=== PATIENT | male | born 1970 | race Caucasian/White ===

== ENCOUNTER 2017-03-01 20:46 | Observation (INO) | payer OTHER ==
[~2017-03-01] VITALS: Ht 190.5 cm; Wt 112.5 kg
[~2017-03-01 20:46] MED LIST: AC325T PO; HYDR-3812 PO; HYDR1TAB PO; MECL25TA56 PO; MELA5CAP PO; METOPROLOL PO; MULT1TAB12 PO
--- NOTE | 2017-03-01 21:47 | Diagnostic Imaging Report ---
PROCEDURE: CT head without contrast. TECHNIQUE: Multiple contiguous axial images were obtained through the brain without the use of intravenous contrast. INDICATION: Left-sided facial pain. Comparison is made with a prior CT from January 30, 2013 FINDINGS: There is an unchanged region of low density within the left cerebellum likely reflecting a prior infarct. There is no other loss of hassan-white differentiation. There is no hemorrhage. There is no mass effect or shift. There is no hydrocephalus. There is no abnormal extra-axial fluid collection. Basilar cisterns are patent. Mastoid air cells are clear. The visualized paranasal sinuses are clear. Orbital contents unremarkable. The visualized bones of the face demonstrate no evidence of fracture and there is no focal soft tissue abnormality. IMPRESSION: 1. No CT evidence of an acute intracranial abnormality. 2. Longstanding stable region of low-density within the superior left cerebellum suggesting a prior remote infarct. Dictated by: Dictated on workstation # [id number]
[2017-03-01 21:58] LABS: BASOPHILS % (AUTO) 0 % (0-10); EOSINOPHILS # (AUTO) 0.1 10^3/uL (0.0-0.3); EOSINOPHILS % (AUTO) 1 % (0-10); LYMPHOCYTES # (AUTO) 1.9 X 10^3 (1.0-4.0); LYMPHOCYTES % (AUTO) 27 % (12-44); MEAN CORPUSCULAR HEMOGLOBIN 31 PG (25-34); MEAN CORPUSCULAR HGB CONC 36 G/DL (32-36); MEAN CORPUSCULAR VOLUME 88 FL (80-99); MEAN PLATELET VOLUME 9.9 FL (7.4-10.4); MONOCYTES # (AUTO) 0.5 X 10^3 (0.0-1.0); MONOCYTES % (AUTO) 7 % (0-12); NEUTROPHILS # (AUTO) 4.6 X 10^3 (1.8-7.8); NEUTROPHILS % (AUTO) 65 % (42-75); PLATELET COUNT 140 10^3/uL (130-400); RED BLOOD COUNT 5.44 10^6/uL (4.35-5.85); RED CELL DISTRIBUTION WIDTH 13.5 % (10.0-14.5); WHITE BLOOD COUNT 7.1 10^3/uL (4.3-11.0)
[2017-03-01 22:07] LABS: PROTHROMBIN TIME PATIENT 12.9 SEC (12.2-14.7)
--- NOTE | 2017-03-01 22:12 | Diagnostic Imaging Report ---
EXAMINATION: PA chest INDICATION: Facial numbness and elevated blood pressure. Comparison is made to prior chest radiograph from December 18, 2008. FINDINGS: There is enlargement of the cardiac silhouette but no evidence to suggest failure. There is no focal infiltrate or effusion. There is no pneumothorax. No acute osseous abnormality is seen. IMPRESSION: 1. Enlarged cardiac silhouette without evidence of failure or evidence of an acute cardiopulmonary process. Dictated by: Dictated on workstation # [id number]
[2017-03-01 22:16] LABS: ALANINE AMINOTRANSFERASE 23 U/L (0-55); ALBUMIN 4.6 GM/DL (3.2-4.5); ANION GAP 13 MMOL/L (5-14); ASPARTATE AMINO TRANSFERASE 20 U/L (5-34); BILIRUBIN,TOTAL 1.2 MG/DL (0.1-1.0); BLOOD UREA NITROGEN 15 MG/DL (7-18); BUN/CREATININE RATIO 9; CALCIUM 9.8 MG/DL (8.5-10.1); CARBON DIOXIDE 22 MMOL/L (21-32); CHLORIDE 107 MMOL/L (98-107); CREATININE SERUM 1.74 MG/DL (0.60-1.30); GFR ESTIMATED 42; GLUCOSE 95 MG/DL (70-105); MAGNESIUM 2.3 MG/DL (1.8-2.4); POTASSIUM 3.9 MMOL/L (3.6-5.0); SODIUM 142 MMOL/L (135-145); TOTAL PROTEIN 7.1 GM/DL (6.4-8.2)
[2017-03-01 22:22] LABS: MYOGLOBIN SERUM 203.1 NG/ML (10.0-92.0)
[2017-03-01] MEDS ORDERED: NS IV 1000 ML 1,000 ML IV ONE (22:50)
[2017-03-01] MEDS ORDERED: CLOPIDOGREL 300 MG (PLAVIX) TABLET PO ONE (23:15)
[2017-03-01] MEDS ORDERED: ENOXAPARIN 60 MG/0.6 ML (LOVENOX) SYR SC ONE (23:15)
[2017-03-02] VITALS (23 sets, daily range): BP systolic 120–210; BP diastolic 65–124
[2017-03-02] MEDS: NS IV 1000 ML 1,000 ML IV SCH ×2 (00:58→12:02)
[2017-03-02] MEDS ORDERED: diphenhydrAMINE 25 MG TAB (BENADRYL) PO PRN (02:00)
[2017-03-02] MEDS ORDERED: CATHETER FLUSH 10 ML SYR IV PRN (04:30)
[2017-03-02] MEDS: CATHETER FLUSH 10 ML SYR IV SCH ×2 (04:32→14:00)
--- NOTE | 2017-03-02 04:45 | ED Neurological Problem ---
General Chief Complaint: Neuro-Stroke Like Symptoms Stated Complaint: STROKE LIKE SYMPTOMS-EXPRESSIVE APHASIA & Nursing Triage Note: PT HERE WITH C/O L SIDE FACIAL NUMBNESS AND SLURRED SPEECH STARTING AT 1500 TODAY. Nursing Sepsis Screen: No Definite Risk Source: patient History of Present Illness Time seen by provider: 21:19 Initial Comments PT ARRIVES VIA POV FROM HOME STATES HE WAS AT A MEETING TODAY IN [place] AND AROUND 1500, HE BEGAN TO HAVE SOME NUMBNESS AND TINGLING TO LEFT SIDE OF FACE AND SOME DIFFICULTY TALKING-- STATES "MY WORDS WOULDN'T COME OUT FAST I WANTED THEM TO" STATES THE NUMBNESS/TINGLING TO FACE HAS GOTTEN BETTER BUT THINKS THAT DIFFICULTY SPEAKING HAS GOTTEN A LITTLE WORSE NO DIFFICULTY SWALLOWING NO VISION CHANGES NO HEADACHE NO PARESTHESIAS OR WEAKNESS TO ARMS OR LEGS NO DIZZINESS--PT DOES HAVE A HISTORY OF VERTIGO AT TIMES, BUT NOT NOW. HAD A SEVERE VERTIGO ATTACK A FEW YEARS AGO NO CHEST PAIN, PALPITATIONS OR SHORTNESS OF BREATH NO SWELLING IN LEGS/ FEET OR RECENT PROLONGED TRAVEL NO HISTORY OF SIMILAR HAS HISTORY OF HTN, BUT IS NON-COMPLIANT WITH TAKING MEDICATION OR WITH FOLLOW UP VISITS PCP: DR MENDENHALL Allergies and Home Medications Allergies Coded Allergies: Penicillins (Unverified Allergy, Mild, 06/19/09) Home Medications Hydrocodone/Acetaminophen 1 Each Tablet, 1-2 EACH PO Q4H PRN for PAIN, #40 Prescribed by: SUSANNA KENT on 06/06/15 1027 Constitutional: no symptoms reported Eyes: No Symptoms Reported Ears, Nose, Mouth, Throat: no symptoms reported Respiratory: no symptoms reported Cardiovascular: no symptoms reported Gastrointestinal: no symptoms reported, No nausea, No vomiting Genitourinary: no symptoms reported Musculoskeletal: no symptoms reported Skin: no symptoms reported Psychiatric/Neurological: See HPI, Denies Cognitive Dysfunction, Denies Headache, Numbness, Tingling, Denies Weakness Endocrine: No Symptoms Reported Hematologic/Lymphatic: No Symptoms Reported Past Liwodcu-Wrnpme-Fluknf Hx Patient Social History Alcohol Use: Rarely Uses Number of Drinks Today: 0 Alcohol Beverage of Choice: Beer, Vodka Recreational Drug Use: No Smoking Status: Current Everyday Smoker (1 PPD) Type Used: Cigarettes Recent Foreign Travel: No Contact w/Someone Who Travel: No Recent Infectious Disease Expo: No Recent Hopitalizations: No Immunizations Up To Date Tetanus Booster (TDap): Less than 5yrs PED Vaccines UTD: No Seasonal Allergies Seasonal Allergies: No Surgeries History of Surgeries: Yes (WISDOM TEETH) Surgeries: Appendectomy Respiratory History of Respiratory Disorde: Yes Respiratory Disorders: Pneumonia Currently Using CPAP: No Currently Using BIPAP: No Cardiovascular History of Cardiac Disorders: Yes (takes b/p med at times) Cardiac Disorders: Hypertension Neurological History of Neurological Disord: Yes (vertigo r/t inner ear problems) Neurological Disorders: Vertigo Reproductive System Hx Reproductive Disorders: No Genitourinary History of Genitourinary Disor: Yes Genitourinary Disorders: Kidney Stones Gastrointestinal History of Gastrointestinal Di: No Musculoskeletal History of Musculoskeletal Dis: Yes (hand, ankle) Musculoskeletal Disorders: Fractures Endocrine History of Endocrine Disorders: No HEENT History of HEENT Disorders: Yes HEENT Disorders: Chronic Ear Infection Hearing Impairment: Denies Cancer History of Cancer: No Psychosocial History of Psychiatric Problem: Yes Behavioral Health Disorders: Sleep Difficulties, Depression Integumentary History of Skin or Integumenta: No Blood Transfusions History of Blood Disorders: No Family Medical History Significant Family History: No Pertinent Family Hx Family Medial History: Congenital heart disease 19 MOTHER Diabetes mellitus 19 MOTHER FH: HIV infection 19 FATHER ( at age 39 from HIV ) Hypertension 19 MOTHER Myocardial infarction 19 MOTHER Physical Exam Vital Signs Vital Sign - Last 12Hours 03/01/17 21:38 Temp 97.8 Pulse 83 Resp 18 B/P (MAP) 207/111 Pulse Ox 97 O2 Delivery Room Air Capillary Refill : Less Than 3 Seconds General Appearance: WD/WN, no apparent distress, other (STRONG ODOR OF CIGARETTES; AMBULATES INTO ER ON HIS OWN WITHOUT DIFFICULTY) HEENT: PERRL/EOMI, normal ENT inspection, TMs normal, pharynx normal Neck: non-tender, full range of motion, supple, normal inspection, No carotid bruit Respiratory: normal breath sounds, no respiratory distress, no accessory muscle use Cardiovascular: normal peripheral pulses, regular rate, rhythm, no edema, no JVD, no murmur Peripheral Pulses: 2+ Dorsalis Pedis (R), 2+ Left Dors-Pedis (L), 2+ Radial Pulses (R), 2+ Radial Pulses (L) Gastrointestinal: normal bowel sounds, non tender, soft Back: normal inspection Extremities: normal range of motion, non-tender, normal inspection, no pedal edema, no calf tenderness, normal capillary refill 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 ) Coordination/Gait: normal finger to nose, normal gait, negative Romberg's sign Motor/Sensory: no motor deficit, no sensory deficit, no pronator drift Reflexes: 1+ Bicep (R), 1+ Bicep (L), 1+ Knee (R), 1+ Knee (L) Skin: normal color, warm/dry Stroke Onset of Symptoms Onset of Symptoms: Yes NIH Stroke Scale Assessment Select: Initial Level of Consciousness: 0=Alert (0), Level of Consciousness- Questions: 0=Answers both month/age (0), LOC Commands: 0=Performs both tasks (0) , Gaze: Normal (0), Visual Jones: 0=No visual loss (0), Facial Movement ( Facial Paresis): 0=Normal symmetrical mnt (0), Motor Function-Arms Right: 0=No drift (0), Motor Function-Arms Left: 0=No drift (0), Motor Function-Legs Right: 0=No drift (0), Motor Function-Legs Left: 0=No drift (0), Limb Ataxia: 0=Absent (0), Sensory: 0=Normal:no loss (0), Best Language: 0=No aphasia (0), Dysarthria : 0=Normal (0), Extinction & Inattention: 0=No abnormality (0), Total: 0 Stroke Thrombolytic Exclusion Age 18 or Over: Yes Acute intenal hemorrhage: No History of CVA: No Uncontrolled Coagulation Defec: No Intracranial Hemorrhage: No Severe Hypertension: No GI or Bleed: No Subarachnoid Hemorrhage: No Intracranial Neoplasm/Aneurysm: No Oral Anticoagulants: No Surgery or Trauma: No Puncture of Non-Compressible V: No Recent CPR: No Diabetic Hemorrhagic Retinopat: No Organ Biopsy: No Glucose: No Significant Hepatic Dysfunctio: No NIH Stoke Scale >22: No Bacterial Endocarditis: No Pericarditis: No Improving Symptoms: No Platelets: No TPA Contraindication: Yes (NIH IS 0) IV - TPa Received IV - TPa Procedure Performed?: No Progress/Results/Core Measures Results/Orders Lab Results Laboratory Tests Test 03/01/17 21:50 Range/Units White Blood Count 7.1 4.3-11.0 10^3/uL Red Blood Count 5.44 4.35-5.85 10^6/uL Hemoglobin 17.0 13.3-17.7 G/DL Hematocrit 48 40-54 % Mean Corpuscular Volume 88 80-99 FL Mean Corpuscular Hemoglobin 31 25-34 PG Mean Corpuscular Hemoglobin Concent 36 32-36 G/DL Red Cell Distribution Width 13.5 10.0-14.5 % Platelet Count 140 130-400 10^3/uL Mean Platelet Volume 9.9 7.4-10.4 FL Neutrophils (%) (Auto) 65 42-75 % Lymphocytes (%) (Auto) 27 12-44 % Monocytes (%) (Auto) 7 0-12 % Eosinophils (%) (Auto) 1 0-10 % Basophils (%) (Auto) 0 0-10 % Neutrophils # (Auto) 4.6 1.8-7.8 X 10^3 Lymphocytes # (Auto) 1.9 1.0-4.0 X 10^3 Monocytes # (Auto) 0.5 0.0-1.0 X 10^3 Eosinophils # (Auto) 0.1 0.0-0.3 10^3/uL Basophils # (Auto) 0.0 0.0-0.1 10^3/uL Prothrombin Time 12.9 12.2-14.7 SEC INR Comment 1.0 0.8-1.4 Activated Partial Thromboplast Time 32 24-35 SEC Sodium Level 142 135-145 MMOL/L Potassium Level 3.9 3.6-5.0 MMOL/L Chloride Level 107 98-107 MMOL/L Carbon Dioxide Level 22 21-32 MMOL/L Anion Gap 13 5-14 MMOL/L Blood Urea Nitrogen 15 7-18 MG/DL Creatinine 1.74 H 0.60-1.30 MG/DL Estimat Glomerular Filtration Rate 42 BUN/Creatinine Ratio 9 Glucose Level 95 70-105 MG/DL Calcium Level 9.8 8.5-10.1 MG/DL Magnesium Level 2.3 1.8-2.4 MG/DL Total Bilirubin 1.2 H 0.1-1.0 MG/DL Aspartate Amino Transf (AST/SGOT) 20 5-34 U/L Alanine Aminotransferase (ALT/SGPT) 23 0-55 U/L Alkaline Phosphatase 56 40-136 U/L Myoglobin 203.1 H 10.0-92.0 NG/ML Troponin I < 0.30 <0.30 NG/ML Total Protein 7.1 6.4-8.2 GM/DL Albumin 4.6 H 3.2-4.5 GM/DL My Orders Orders - KANCHAN ECHOSL DO Ekg Tracing (03/01/17 21:23) Cbc With Automated Diff (03/01/17 21:23) Comprehensive Metabolic Panel (03/01/17 21:23) Protime With Inr (03/01/17 21:23) Partial Thromboplastin Time (03/01/17 21:23) Magnesium (03/01/17 21:23) Chest 1 View, Ap/Pa Only (03/01/17 21:23) Cardiac Profile 1 (03/01/17 21:23) Cardiac Profile 2 (03/02/17 03:23) Myoglobin Serum (03/01/17 21:23) Ct Head Wo (03/01/17 21:23) Monitor-Rhythm Ecg Trace Only (03/01/17 21:23) Saline Lock/Iv-Start (03/01/17 22:50) Ns Iv 1000 Ml (Sodium Chloride 0.9%) (03/01/17 22:50) Clopidogrel Tablet (Plavix Tablet) (03/01/17 23:15) Enoxaparin Injection (Lovenox Injection) (03/01/17 23:15) Medications Given in ED Current Medications Medications Dose Ordered Sig/Kely Route Start Time Stop Time Status Last Admin Dose Admin Clopidogrel Bisulfate 300 mg ONCE ONCE PO 03/01/17 23:15 03/01/17 23:16 DC 03/01/17 23:34 300 MG Enoxaparin Sodium 120 mg ONCE ONCE SC 03/01/17 23:15 03/01/17 23:16 DC 03/01/17 23:38 120 MG Sodium Chloride 1,000 ml @ 0 mls/hr Q0M ONCE IV 03/01/17 22:50 03/01/17 22:52 DC 03/01/17 23:02 1,000 MLS/HR Vital Signs/I&O Vital Sign - Last 12Hours 03/01/17 21:38 Temp 97.8 Pulse 83 Resp 18 B/P (MAP) 207/111 Pulse Ox 97 O2 Delivery Room Air Blood Pressure Mean: 113 Progress Note : Progress Note NO DETERIORATION IN PT'S CONDITION DURING ER STAY BP DOWN TO 170'S /90'S WITHOUT TREATMENT, FROM INITIAL BP READING OF 207/111 ECG Initial ECG Impression Time: 21:58 Initial ECG Rate: 77 Initial ECG Rhythm: Normal Sinus Initial ECG Comparisson: No Previous ECG Available Diagnostic Imaging Comments CXR--CARDIOMEGALY, NO ACUTE PROCESS, PER RADIOLOGIST REPORT CT HEAD--NO ACUTE PROCESS, STABLE LONGSTANDING REGION OF LOW DENSITY IN SUPERIOR LEFT CEREBELLUM SUGGESTING PRIOR REMOTE INFARCT. PER RADIOLOGIST REPORTS @ 2153 Reviewed: Reviewed by Me Departure Communication (Admissions) Progress Notes 2232--SPOKE WITH DR. 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 SHE ADVISES CT ANGIOGRAM OF HEAD AND NECK. IF NO SIGNIFICANT STENOSIS, MAY START PLAVIX. IF HIGH GRADE STENOSIS, REFER FOR SURGICAL INTERVENTION. ON REVIEW OF PT'S LAB, WITH CREATININE OF 1.74 AND GFR OF 42, AND AFTER PROGRAMMING INTERNSHIP HAS DISCUSSED WITH RADIOLOGIST, DOES NOT ADVISE IV CONTRAST FOR CT ANGIOGRAM. ADVISES MRI/MRA IN AM 2305--SPOKE WITH DR. MULLINS, HOSPITALIST. HE IS IN AGREEMENT WITH THE ABOVE PLAN AND ACCEPTS PT FOR ADMIT. HE ADVISES LOADING PT WITH PLAVIX 300 MG AND LOVENOX Impression Impression: Primary Impression: Stroke-like symptoms Additional Impressions: LEFT FACIAL PARESTHESIAS Mild expressive language delay Uncontrolled hypertension Renal insufficiency HX OF NON-COMPLIANCE Smoker Disposition: ADMITTED INPATIENT Condition: Improved Admissions Decision to Admit Reason: Admit from ER (General) Decision to Admit/Date: Mar 01, 2017 Time/Decision to Admit Time: 23:05 Departure-Patient Inst. Referrals: GERALDINE MENDENHALL DO (PCP) Primary Care Physician KANCHAN ECHOLS DO Mar 02, 2017 04:45
[2017-03-02 05:05] LABS: BASOPHILS % (AUTO) 0 % (0-10); EOSINOPHILS # (AUTO) 0.1 10^3/uL (0.0-0.3); EOSINOPHILS % (AUTO) 2 % (0-10); LYMPHOCYTES # (AUTO) 2.2 X 10^3 (1.0-4.0); LYMPHOCYTES % (AUTO) 39 % (12-44); MEAN CORPUSCULAR HEMOGLOBIN 31 PG (25-34); MEAN CORPUSCULAR HGB CONC 35 G/DL (32-36); MEAN CORPUSCULAR VOLUME 90 FL (80-99); MEAN PLATELET VOLUME 10.1 FL (7.4-10.4); MONOCYTES # (AUTO) 0.4 X 10^3 (0.0-1.0); MONOCYTES % (AUTO) 8 % (0-12); NEUTROPHILS # (AUTO) 2.9 X 10^3 (1.8-7.8); NEUTROPHILS % (AUTO) 51 % (42-75); PLATELET COUNT 114 10^3/uL (130-400); RED BLOOD COUNT 4.98 10^6/uL (4.35-5.85); RED CELL DISTRIBUTION WIDTH 13.5 % (10.0-14.5); WHITE BLOOD COUNT 5.7 10^3/uL (4.3-11.0)
[2017-03-02 05:31] LABS: ALBUMIN 3.9 GM/DL (3.2-4.5); BILIRUBIN,TOTAL 1.4 MG/DL (0.1-1.0); CALCIUM 8.8 MG/DL (8.5-10.1); CREATININE SERUM 1.73 MG/DL (0.60-1.30); MAGNESIUM 2.1 MG/DL (1.8-2.4); PHOSPHORUS 3.5 MG/DL (2.3-4.7); POTASSIUM 4.2 MMOL/L (3.6-5.0); TOTAL PROTEIN 5.7 GM/DL (6.4-8.2)
[2017-03-02] MEDS ORDERED: POTASSIUM CL 10MEQ/50ML IVPB 50 ML IV SCH (06:00)
[2017-03-02] MEDS ORDERED: MAGNESIUM 1 GM/100 ML IVPB 100 ML IV SCH (06:00)
[2017-03-02] MEDS ORDERED: KCL 20 MEQ TAB (K-DUR) PO SCH (06:00)
--- NOTE | 2017-03-02 06:54 | Diagnostic Imaging Report ---
INDICATION: Left facial paresthesia. Suspect stroke. COMPARISON: 03/01/2017. FINDINGS: Single frontal view of the chest demonstrates stable moderate cardiomegaly. Pulmonary vasculature, however, is within normal limits. The lungs are well aerated and clear. No large pleural effusion or pneumothorax is seen. The visualized osseous structures show no acute abnormalities. IMPRESSION: 1. Persistent moderate cardiomegaly, but no evidence of failure or focal infiltrate. Dictated by: Dictated on workstation # [id number]
[2017-03-02] MEDS ORDERED: OMG1KC PO (10:00)
[2017-03-02] MEDS ORDERED: PYRI100T2 PO (10:00)
[2017-03-02] MEDS ORDERED: ZINC50TA51 PO (10:00)
[2017-03-02] MEDS ORDERED: LISI-552 PO ×2 (10:00→16:01)
[2017-03-02] MEDS ORDERED: CYAN100015 SL (10:00)
[2017-03-02] MEDS ORDERED: MULT-35 PO (10:00)
--- NOTE | 2017-03-02 10:48 | Diagnostic Imaging Report ---
PROCEDURE: US Carotid Duplex Bilateral. TECHNIQUE: Multiple real-time grayscale images were obtained over the carotid arteries in various projections bilaterally. Additional duplex Doppler and color Doppler images were also obtained. INDICATION: Left-sided facial numbness. There are no prior studies available for comparison. There is a moderate amount of hard and soft plaque formation in the carotid bifurcation on the right and mild soft plaque formation in the carotid bifurcation on the left. The flow velocities failed to show any sign of a hemodynamically significant stenosis of the common or internal carotid arteries. Both vertebral arteries were noted, and there was antegrade flow bilaterally. IMPRESSION: 1. There is mild/moderate atherosclerotic disease involving the carotid systems, but there is no evidence for a hemodynamically significant stenosis of the common or internal carotid arteries. 2. These results were discussed with Dr. Dockery. Dictated by: Dictated on workstation # [id number]
[2017-03-02 10:51] LABS: CHOLESTEROL 139 MG/DL (< 200); DIRECT LDL 94 MG/DL (1-129); TRIGLYCERIDES 141 MG/DL (<150); VLDL CHOLESTEROL 28 MG/DL (5-40)
--- NOTE | 2017-03-02 10:51 | Short Stay Summary-Hospitalist ---
HPI History of Present Illness: HPI/Chief Complaint Pt is a 46yoCM with a PMH of HTN and tobacco abuse who presented to the ER with CC of face numbness. His symptoms started on the day of admission around 1500. He felt his speech was slurred and the left side of his face was numb. When it did not improve over a few hours he decided to seek evaluation at the ER. He denies any other deficits, weakness, paresthesias. He has never had similar symptoms. He denies any double/blurry vision. He states his symptoms have improved somewhat but he still feels that his speech is not normal and his face feel a little drooped. His girlfriend agrees that he does not seem quite back to normal. Source: patient, family Exam Limitations: no limitations Date Seen 03/02/17 Time Seen by Provider: 09:00 Attending Physician Sancho Jones MD PCP Rafael Canada DO Referring Physician Date of Admission Mar 02, 2017 at 00:00 Home Medications & Allergies Home Medications Reviewed patient Home Medication Reconciliation Form Allergies Allergies Coded Allergies Penicillins (Unverified Allergy, Mild, 06/19/09) Past Aohgewp-Mnfycw-Laxgts Hx Patient Social History Marrital Status: single Alcohol Use: Rarely Uses Number of Drinks Today: 0 Alcohol Beverage of Choice: Beer, Vodka Recreational Drug Use: No Smoking Status: Current Everyday Smoker (1 PPD) Cigaretts per day: 20 Type Used: Cigarettes Physical Abuse Screen: No Sexual Abuse: No Recent Foreign Travel: No Contact w/other who traveled: No Recent Hopitalizations: No Recent Infectious Disease Expo: No Immunizations Up To Date Tetanus Booster (TDap): Less than 5yrs Pediatric: No Seasonal Allergies Seasonal Allergies: No Surgeries Yes (WISDOM TEETH) Appendectomy Respiratory Yes Currently Using CPAP: No Currently Using BIPAP: No Cardiovascular Yes (takes b/p med at times) Hypertension Neurological Yes (vertigo r/t inner ear problems) Vertigo Reproductive System Hx Reproductive Disorders: No Genitourinary Yes Kidney Stones Gastrointestinal No Musculoskeletal Yes (hand, ankle) Fractures Endocrine History of Endocrine Disorders: No HEENT History of HEENT Disorders: Yes HEENT Disorders: Chronic Ear Infection Hearing Impairment: Denies Cancer No Psychosocial History of Psychiatric Problem: Yes Behavioral Health Disorders: Sleep Difficulties, Depression Integumentary History of Skin or Integumenta: No Blood Transfusions History of Blood Disorders: No Family Medical History Significant Family History: No Pertinent Family Hx Family Hx: Congenital heart disease 19 MOTHER Diabetes mellitus 19 MOTHER FH: HIV infection 19 FATHER ( at age 39 from HIV ) Hypertension 19 MOTHER Myocardial infarction 19 MOTHER Review of Systems Constitutional: No chills, No diaphoresis, No fever, No weakness EENTM: No ear pain, No blurred vision, No double vision, No vision loss Respiratory: No cough, No dyspnea on exertion, No short of breath Cardiovascular: No chest pain, No edema, No palpitations Gastrointestinal: No abdominal pain, No constipation, No diarrhea, No nausea, No vomiting Genitourinary: No dysuria, No frequency Musculoskeletal: No joint pain, No muscle pain Skin: No lesions, No rash Psychiatric/Neurological: Numbness, Paresthesia Physical Exam Physical Exam Vital Signs Vital Sign - Last 12Hours 03/01/17 21:38 Temp 97.8 Pulse 83 Resp 18 B/P (MAP) 207/111 Pulse Ox 97 O2 Delivery Room Air Capillary Refill : Less Than 3 Seconds General Appearance: No Apparent Distress, WD/WN Eyes: Bilateral Eye EOMI HEENT: PERRL/EOMI Neck: Non Tender, Supple Respiratory: Lungs Clear, Normal Breath Sounds Cardiovascular: Regular Rate, Rhythm, No Edema, No Murmur Gastrointestinal: Normal Bowel Sounds, Non Tender, Soft Extremity: Normal Capillary Refill, Non Tender, No Calf Tenderness Neurologic/Psychiatric: Alert, Oriented x3, Facial Droop (very minor left sided droop), Other (Strength and sensation intact in all four extremities) Skin: Normal Color, Warm/Dry Results Results/Procedures Lab Laboratory Tests 03/01/17 21:50 03/02/17 03:58 Radiology IMPRESSION: 1. No CT evidence of an acute intracranial abnormality. 2. Longstanding stable region of low-density within the superior left cerebellum suggesting a prior remote infarct. Short Stay Diagnosis Discharge Diagnosis-Short Stay Admission Diagnosis Stroke Like Symptoms Final Discharge Diagnosis Acute to Subacute left MCA Infarct Conclusion Plan See Problems Diagnosis/Problems Diagnosis/Problems (1) Acute ischemic left MCA stroke Status: Acute Assessment & Plan: MRI Obtained which showed acute to subacute left MCA infarct Has very slight deficit remain, able to speech and swallow without difficulty CT without evidence of CVA, unable to obtain CTA given creatinine MRI/MRA: per radiologist verbal report shows acute to subacute L MCA infarct Carotid Doppler: without significant disease Started on ASA and statin Evaluated by TIGHT ROPE WALKER/OT/PT and no indication for inpatient rehab Recommended smoking cessation (2) Mild expressive language delay Onset Date: ~ 03/01/2017 Status: Acute Assessment & Plan: Secondary to acute CVA, evaluated by TIGHT ROPE WALKER no noted swallowing difficulties (3) Renal insufficiency Status: Chronic Assessment & Plan: Appears to be chronic (review shows leaf sorter 1.46 form 2 years ago) Fluid resuscitated to see if acute component Already on MAREK- I (4) Smoker Status: Acute Assessment & Plan: Over 30pack year smoker Recommended smoking cessation very strongly (5) Essential (primary) hypertension Status: Chronic Assessment & Plan: Longstanding, reports compliance with medications Very elevated here but improved without treatment Will continue on home Lisinopril Copy Copies To 1: RAFAEL CANADA DO Clinical Quality Measures DVT/VTE Risk/Contraindication: Risk Factor Score Per Nursin RFS Level Per Nursing on Admit: 3=High Smoking Cessation Counseling: Counseling-Symptomatic: 3-10 Minutes SAMINA ALEX MD Mar 02, 2017 10:51
[2017-03-02] MEDS ORDERED: ATOR40TA PO (11:09)
[2017-03-02] MEDS ORDERED: ASPI-808 PO (11:09)
--- NOTE | 2017-03-02 11:36 | Occ Therapy Progress Note ---
Therapy Progress Note OT order received. Chart reviewed. Went into room to evaluate pt. Pt. out to MRI. Will come back later. [id number] CURTIS LAROSE OT Mar 02, 2017 11:36
--- NOTE | 2017-03-02 13:52 | ST Cognitive Linguistic Eval ---
Speech Evaluation-General Medical Diagnosis Suspected TIA/CVA Onset Date: Mar 01, 2017 Therapy Diagnosis Therapy Diagnosis: Minimal Dysarthria Precautions Precautions/Isolations: Standard Precautions Referral Referring Physician: Dr. Dockery Reason for Referral: Evaluation/Treatment Cognitive, Speech, Language Evaluation Medical History Pertinent Medical History: HTN Reviewed History: Yes Speech PLF-Current Status Prior Level of Function The patient denied challenges with speech or language prior to his hospitalization. Subjective The patient was recently admitted to [facility] with a diagnosis of suspected CVA/TIA. The patient greeted the clinician appropriately and was agreeable to participation in the cognitive, speech, and language evaluation. Language Eval: Auditory Comprehends Simple Yes/No Ques: Functional Indent/Objects Multiple Jones: Functional Follows 1-Step Commands: Functional Follows Complex Directions: Functional Follows General Conversations: Functional Language Eval: Verbal Language Completes Spontaneous Greeting: Functional Produces Auto, Serial Info: Functional Imitates Simple Words/Phrases: Functional Word Finding: Mild Requests Basic Needs: Functional States Basic Personal Info: Functional Expresses Complex Ideas: Functional Cognitive Patient Orientation The patient was oriented to month, day of week, year, and location. Objective Cognitive Domain Attention: WNL Memory: WNL Problem Solving: Functional Objective Oral Motor/Speech Production The patient displays a minimal reduction in left sided labial retraction. Lingual protrusion at midline. Per patient, "sometimes words don't come out just right." The patient was 100% intelligible in known and unknown contexts. Impression The patient displayed minimal dysarthria characterized by reduced left labial retraction. Speech-Plan Treatment Plan Speech Therapy Treatment Plan: Discontinue ST Evaluation, only. At this time, the patient displays minimal dysarthria. If dysarthria worsens or intelligibility becomes negatively impacted, speech pathology to reconsult. Frequency: 3 times per week (Evaluation, only. If dysarthria worsens, clinician would consider treatment three times per week.) Estimated Hrs Per Day: Other (Evaluation, only.) Rehab Potential: Good Safety Risks/Education Teaching Recipient: Patient, Significant Other Teaching Methods: Discussion Response to Teaching: Verbalize Understanding Education Topics Provided: Results, Recommendations, Plan of Care Time Speech Therapy Time In: 13:20 Speech Therapy Time Out: 13:35 Total Billed Time: 15 Billed Treatment Time 1, SPSNDCOMP Speech GCodes Complexity Level Test(s)/Tool Used to Determine: Level of Assistance Scale Functional Limitation-Current Current: SPEECUR Modifier: CI Functional Limitation-Goal Goal: SPEEGOAL Modifier: CI Functional Limitation-D/C Discharge: SPEEDC Modifier: CI JACQUIE STEVE Mar 02, 2017 13:52
--- NOTE | 2017-03-02 13:59 | Occupational Therapy Eval ---
OT Evaluation-General/PLF Medical Diagnosis Admission Date Mar 02, 2017 at 00:00 Medical Diagnosis: Strokelike symptoms, expressive aphasia Onset Date: Mar 02, 2017 Therapy Diagnosis Therapy Diagnosis: decr self care Height/Weight Height (Feet): 6 Height (Inches): 3.00 Weight (Pounds): 248 Weight (Ounces): 2.0 Precautions Precautions/Isolations: Standard Precautions Referral Physician: Nahed Referral Reason: Evaluation/Treatment Medical History Pertinent Medical History: HTN, Smoking Additional Medical History Hx pneumonia, vertigo, chronic ear infection, depression. Appendectomy Current History Noticed difficulty talking, L sided facial numbness. Uncontrolled HTN. Slurred speech. renal insufficiency Reviewed History: Yes Social History Home: Multilevel ADL-Prior Level of Function ADL PLOF Comments Pt reportd that he has been independent with all of his basic self care. 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 Occupation: [employer] Self: Yes OT Current Status Subjective Pt seen in room, up in bed, agreeable to OT. No pain reported. Appearance Alert, oriented (unsure of the date but correct with month and year and day of week) Mental Status/Objective Attachments: IV, Telemetry Current Hand Dominance: Right Upper Extremity ROM WFL bilaterally Upper Extremity Coordination No incoordination observed. Pt reported that he is able to manage the keyboard on his phone Upper Extremity Sensation Pt reported no numbness or tingling Upper Extremity Strength Strength 5/5 bilaterally. ADL-Treatment ADL-Current Pt reported that he fed himself without difficulty. He has been getting up to go to the bathroom (help to manage tubing and wires) and using a urinal without help. He was able to move easily from supine to sit EOB and take slipper socks off/put them back on without assistance. He also easily stood to sidestep toward the head of bed. Pt does not think he has any deficits other than facial numbness/weakness and language. Functional [place] Measure 0=Not Assessed/NA 4=Minimal Assistance 1=Total Assistance 5=Supervision or Setup 2=Maximal Assistance 6=Modified [place] 3=Moderate Assistance 7=Complete IndependenceIRFPAI Quality Coding Scale 6 Independent with activity with or without an assistive device 5 Patient requires set up or clean up by helper. Patient completes activity by themselves 4 Supervision or touching assist (CGA). Marion provide cues , steadying assist 3 The helper provides less than half the effort to complete the activity 2 The helper provides more than half the effort to complete the activity 1 Dependent. The helper does all the effort to complete an activity 7 Patient refused to complete or attempt activity 9 The patient did not perform the activity before the current illness or injury 88 Not attempted due to Medical conditions or safety concerns Education OT Patient Education: Purpose of tx/functional activities, Rehab process Teaching Recipient: Patient Teaching Methods: Discussion Response to Teaching: Verbalize Understanding OT Parts Lister Goals [facility] Goals Time Frame: Mar 02, 2017 DC OT OT Education/Plan Problem List/Assessment Assessment: No Skilled OT Needs ID'd Pt does not have any UE deficits and is able to manage his ADLs without assistance (other than with tubings and wires). No skilled OT needs identified Discharge Recommendations Plan/Recommendations: Discontinue OT Therapy D/C Recommendations: Home w/ Family Support Treatment Plan/Plan of Care Treatment,Training & Education: No (no skilled needs identified) Patient would benefit from OT for education, treatment and training to promote independence in ADL's, mobility, safety and/or upper extremity function for ADL' s. Treatment Duration: Mar 02, 2017 Frequency: Daily (DC OT) Estimated Hrs Per Day: Other (DC OT) Agreement: Yes Rehab Potential: Good Time/GCodes Start Time: 13:35 Stop Time: 13:50 Total Time Billed (hr/min): 15 Billed Treatment Time visit, 15 minutes evaluation low intensity YARON LOPEZ OT Mar 02, 2017 13:59
--- NOTE | 2017-03-02 14:52 | Physical Therapy Evaluation ---
PT Evaluation-General Medical Diagnosis Admission Date Mar 02, 2017 at 00:00 Medical Diagnosis: Strokelike symptoms, expressive aphasia Onset Date: Mar 02, 2017 Therapy Diagnosis Therapy Diagnosis: eval for mobility impairments Height/Weight Height (Feet): 6 Height (Inches): 3.00 Weight (Pounds): 248 Weight (Ounces): 2.0 Precautions Precautions/Isolations: Standard Precautions Referral Physician: Nahed Reason for Referral: Evaluation/Treatment Medical History Pertinent Medical History: HTN, Renal Insufficiency, Smoking Additional Medical History Hx pneumonia, depression, appendectomy Current History Pt was admitted 03/01 for stroke-like symptoms. Pt reports L side facial numbness and difficulty speaking. 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 Pt had no reports of pain. Pt was sitting in bed with nurse call, tray, all needs in reach, family in room. Pain Numeric Pain Scale: 0-No Pain Location: No Pain Reported Pt/Family Goals To return home and be independent with all mobility. Objective Patient Orientation: Normal For Age Attachments: IV telemetry ROM/Strength ROM Upper Extremities WNL ROM Lower Extremities WNL Strength Upper Extremities WNL Strenght Lower Extremities Strength was 5/5 all motions throughout both LE, no difference side to side. Integumentary/Posture Integumentary refer to nursing note Bowel Incontinence: No Bladder Incontinence: No Sensory Vision: Functional Hearing: Functional Hand Dominance: Right Transfers Functional [place] Measure 0=Not Assessed/NA 4=Minimal Assistance 1=Total Assistance 5=Supervision or Setup 2=Maximal Assistance 6=Modified [place] 3=Moderate Assistance 7=Complete [place] Transfers (B, C, W/C) (FIM): 7 Scootin Supine to/from Sit: 7 Sit to/from Stand: 7 Gait Mode of Locomotion: Walk Anticipated Mode of Locomotion: Walk Gait (FIM): 5 Distance (FIM): 3=150 ft Distance: 450' Gait Level of Assist: 5 Gait Persons Needed: 1 Gait Assistive Device: None Comments/Gait Description Pt ambulates 450' with supervision for safety. Pt reports no difficulty or weakness with walking. Balance Sitting Static: Normal Sitting Dynamic: Normal Standing Static: Normal Standing Dynamic: Normal Assessment/Needs Pt has a left sided facial droop that is slightly visible with smiling, pt reports this is recent development. PT will check on pt tomorrow to make sure pt does not develop additional weakness or symptoms. Rehab Potential: Good PT Legal Records Clerk Goals [facility] Goals PT Legal Records Clerk Goals Time Frame: Mar 04, 2017 Gait (FIM): 7 Gait distance (FIM): 3=150 ft Gait Assistive Device: None PT Plan Problem List Problem List: Activity Tolerance, Functional Strength, Safety, Balance, Gait Treatment/Plan Treatment Plan: Continue Plan of Care Treatment Plan: Education, Functional Activity [place], Functional Strength, Gait , Safety, Therapeutic Exercise Treatment Duration: Mar 09, 2017 Frequency: Daily Estimated Hrs Per Day: .25 hour per day (15-30min) Patient and/or Family Agrees t: Yes Safety Risks/Education Patient Education: Gait Training, Steps, Correct Positioning, Safety Issues Teaching Recipient: Patient Teaching Methods: Demonstration, Discussion Response to Teaching: Verbalize Understanding, Return Demonstration Discharge Recommendations Therapy D/C Recommendations: Home w/ Family Support Time/GCodes Time In: 1430 Time Out: 1440 Total Billed Treatment Time: 10 Total Billed Treatment 1 visit EVL 10 FAY DUNLAP PT Mar 02, 2017 14:52
--- NOTE | 2017-03-02 16:06 | Discharge Inst-Simple/Standard ---
Discharge Inst-Standard Discharge Medications New, Converted or Re-Newed RX: Transmitted to Pharmacy Patient Instructions/Follow Up Plan of Care/Instructions/FU: Discussed plan to DC on new meds (aspirin, statin) and to resume his lisinopril. Will follow up with his PCP in 1 week. If symptoms return or worsen please return to the ED. Activity as Tolerated: Yes Discharge Diet: No Restrictions Other Inst to Patient Please quit smoking. SAMINA ALEX MD Mar 02, 2017 16:06
[2017-03-02] MEDS ORDERED: ASPIRIN 325 MG (5 GR) TABLET ONE (16:18)
[2017-03-02] MEDS ORDERED: ASPIRIN 325 MG (5 GR) TABLET PO NR (16:30)
[2017-03-02] MEDS ORDERED: ATORVASTATIN 40 MG (LIPITOR) TABLET PO SCH (21:00)
[2017-03-03] MEDS ORDERED: ASPIRIN 325 MG (5 GR) TABLET PO SCH (09:00)
[2017-03-03] MEDS ORDERED: lisINopril 20 MG (ZESTRIL) TAB PO SCH (09:00)
== END 2017-03-02 16:01 | disposition home or self-care (01) ==
LOC: EDUNIT# 20:46 → ER 20:49 → ICU 03-02 → UNDOADMOB 03-02 → ICU 03-02 00:45 → UNDODISOB 03-02 16:35
PROVIDERS: ADMIT Internal Medicine; ATTEND Internal Medicine
DX: I63.512 Cerebral infarction due to unspecified occlusion or stenosis of left middle cerebral artery (principal); I10 Essential (primary) hypertension; N28.9 Disorder of kidney and ureter, unspecified; I51.7 Cardiomegaly; I70.8 Atherosclerosis of other arteries; F17.210 Nicotine dependence, cigarettes, uncomplicated; Z91.14 Patient's other noncompliance with medication regimen
CPT/HCPCS: 36415; 70450; 70544; 70551; 71010; 80053; 80061; 83735; 83874; 84100; 84484; 85025; 85610; 85730; 87081; 93005; 93306; 93880; 96360; 96372; G0378

== ENCOUNTER → 2017-09-28 | Outpatient (CLI) | payer OTHER ==
[~2017-09-28] MED LIST changes: +ACHD5005 PO; +ASPI-808 PO; +ATOR40TA PO; +CYAN100015 SL; -HYDR-3812 PO; +LISI-552 PO; +MULT-35 PO; +OMG1KC PO; +PYRI100T2 PO; +ZINC50TA51 PO
--- NOTE | 2017-09-28 19:33 | Diagnostic Imaging Report ---
EXAMINATION: Supine abdomen at 2:54 p.m. INDICATION: Nephrolithiasis. FINDINGS: There are no recent abdomen exams available for comparison. The CT abdomen/pelvis exam of 07/12/2011 did note a 9 mm calculus within the inferior pole of the right kidney. There was also partial obstruction of the right collecting system due to a minute calculus at the ureterovesical junction. On this exam, the nonobstructive calculus within the inferior pole of the right kidney is again identified. This calculus now measures approximately 5 mm. There is no other pathological calcification evident. The bowel gas pattern is nonspecific. There is no mass or organomegaly appreciated. The osseous structures are intact. IMPRESSION: The nonobstructive calculus within the inferior pole of the right kidney seen previously is again evident and no different. There is no other pathological calcification identified. Dictated by: Dictated on workstation # [id number]
== END ==
LOC: RAD 14:26
PROVIDERS: ATTEND Urology
DX: N20.0 Calculus of kidney (principal)
CPT/HCPCS: 74018